=== PATIENT | female | born 1985 | race Hispanic/Latino ===

== ENCOUNTER 2019-06-14 18:48 | Emergency (ER) | payer MEDICAID ==
[~2019-06-14] VITALS: Ht 154.9 cm; Wt 63.5 kg
--- OUTSIDE RECORDS SUMMARY | 2019-06-14 18:50 | XMS ---
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 Pito has no Care Guidelines for this patient. Lorenzo V[facility] (12 MO.) [facility] NOTE: Visits indicate total known visits. ED/C VISIT TRACKING (12 MO.) 06/14/2019 18:49 [facility] [place] TYPE: Emergency COMPLAINT: - ANXIETY 06/06/2019 18:[address] [facility] [place] TYPE: Emergency COMPLAINT: - FALL/ARM INJURY DIAGNOSES: - Personal history of nicotine dependence - Contusion of left elbow, initial encounter - Allergy status to sulfonamides status - Essential (primary) hypertension - Abrasion, right knee, initial encounter - Fall on same level, unspecified, initial encounter - Pain in left shoulder - Contusion of left shoulder, initial encounter INPATIENT VISIT TRACKING (12 MO.) No inpatient visits to display in this time frame [id number]
[2019-06-14] MEDS ORDERED: LISINOPRIL5 MG PO ×3 (19:04→19:32)
[2019-06-14] MEDS ORDERED: ALPRAZOLAM1 MG PO ×2 (19:05)
[2019-06-14] MEDS ORDERED: LEVOTHYROXINE125 MCG PO (19:06)
[2019-06-14] MEDS ORDERED: OXYCODONE HCL10 MG PO ×2 (19:07)
[2019-06-14] MEDS ORDERED: SYNTHROID50 MCG PO ×2 (19:32)
[2019-06-14] MEDS ORDERED: XANAX0.5 MG PO (19:32)
== END 2019-06-14 19:46 | disposition home or self-care (01) ==
LOC: ED 18:48
DX: Z76.0 Encounter for issue of repeat prescription (principal); I10 Essential (primary) hypertension; F41.9 Anxiety disorder, unspecified; F17.200 Nicotine dependence, unspecified, uncomplicated; Z88.2 Allergy status to sulfonamides; Z79.899 Other long term (current) drug therapy
CPT/HCPCS: 99282

== ENCOUNTER → 2019-06-15 | Emergency (ER) | payer MEDICAID ==
[~2019-06-15] VITALS: Ht 154.9 cm; Wt 63.5 kg
[~2019-06-15] MED LIST: ALPRAZOLAM1 MG PO; LEVOTHYROXINE125 MCG PO; LISINOPRIL5 MG PO; OXYCODONE HCL10 MG PO; SYNTHROID50 MCG PO; XANAX0.5 MG PO
--- OUTSIDE RECORDS SUMMARY | 2019-06-15 22:32 | XMS ---
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 Pito has no Care Guidelines for this patient. [place] [facility] MO[facility] T[facility] NOTE: Visits indicate total known visits. ED/C VISIT TRACKING (12 MO.) 06/15/2019 22:30 [facility] [place] TYPE: Emergency COMPLAINT: - HAND NUMBNESS 06/14/2019 18:49 [facility] [place] TYPE: Emergency COMPLAINT: - ANXIETY 06/06/2019 18:59 [facility] [place] TYPE: Emergency COMPLAINT: - FALL/ARM INJURY [...] visits to display in this time frame [id number]
== END ==
LOC: ED 22:30
DX: T40.7X5A Adverse effect of cannabis (derivatives), initial encounter (principal); I10 Essential (primary) hypertension; F17.200 Nicotine dependence, unspecified, uncomplicated; Z88.2 Allergy status to sulfonamides; Z79.899 Other long term (current) drug therapy
CPT/HCPCS: 99283; 99406; Q0163